=== PATIENT | female | born 1965 | race African-American/Black ===

== ENCOUNTER → 2023-08-26 09:50 | Outpatient (REF) | payer BC, SELFPAY | LOC: HWWDC 09:50 | PROVIDERS: ATTENDING PHYSICIAN Family Medicine; FAMILY PHYSICIAN Internal Medicine | DX: Z12.31 Encounter for screening mammogram for malignant neoplasm of breast (principal) | CPT/HCPCS: 77063; 77067 ==

== ENCOUNTER → 2024-11-07 19:35 | Outpatient (REF) | payer OTHER, SELFPAY | LOC: WDC 19:35 | PROVIDERS: ATTENDING PHYSICIAN Nurse Practitioner Women's Health; FAMILY PHYSICIAN Internal Medicine | DX: Z12.31 Encounter for screening mammogram for malignant neoplasm of breast (principal) | CPT/HCPCS: 77063; 77067 ==